=== PATIENT | female | born 1990 | race Caucasian/White ===

== ENCOUNTER 2017-12-21 15:48 | Emergency (ER) | payer OTHER, MEDICAID ==
[~2017-12-21] VITALS: Ht 160 cm; Wt 63.5 kg
[~2017-12-21 15:48] MED LIST: AUGMENTIN 875875 M1; BACTRIM DS TAB1 EACH PO; CIPROFLOXACIN500 M1 PO; COLACE100 MG PO; FLEXERIL PO; FLINTSTONES T100 MCG; HYDROCODONE-AP1 EAC6 PO; IBUPROFEN 800800 M1 PO; IRON325 PO; MACROBID 100 M100 M1 PO; MOBIC7.5 MG PO; NORCO 5-325 TA1 EACH; NORCO 5-325 TA1 EACH PO; ONDANSETRON HCL4 M2 PO; PHENAZOPYRIDIN200 M2 PO; PROTONIX 20 MG20 M1 PO; TRAMADOL 50 MG50 MG PO; TRINATE TABLET1 TAB PO; ZOFRAN ODT4 MG PO
[2017-12-21] MEDS ORDERED: PENICILLIN V P500 MG PO (16:35)
[2017-12-21] MEDS ORDERED: TRAMADOL 50 MG50 MG PO (16:35)
[2017-12-21] MEDS ORDERED: NABUMETONE 750750 M1 PO (16:35)
[2017-12-21 16:45] LABS: URINE BILIRUBIN NEGATIVE (Negative); URINE BLOOD TRACE (Negative); URINE CLARITY CLEAR; URINE COLOR YELLOW; URINE GLUCOSE-RANDOM NEGATIVE (Negative); URINE KETONES NEGATIVE (Negative); URINE LEUKOCYTES 1+ (Negative); URINE NITRITE NEGATIVE (Negative); URINE PROTEIN NEGATIVE (Negative); URINE SPECIFIC GRAVITY >= 1.030 (1.005-1.030); URINE UROBILINOGEN 0.2 E.U./dl (0.2-1.0)
[2017-12-21 16:52] LABS: AMP/METHAMP Negative (Negative); BARBITURATES Negative (Negative); BENZODIAZEPINES Negative (Negative); COCAINE Negative (Negative); METHADONE Negative (Negative); OPIATES Negative (Negative); PCP Negative (Negative); THC Negative (Negative)
[2017-12-21 16:57] LABS: CASTS None Seen /LPF (None Seen); CRYSTALS None Seen /LPF (None Seen); MUCUS 4-6 Moderate strn/LPF (None Seen); SQUAMOUS >10 Many /LPF (0-3)
[2017-12-21 16:58] LABS: URINE RBC 0-2 Rare /HPF (0-2); URINE WBC 6-15 Few /HPF (0-5)
[2017-12-21 17:02] LABS: ABSOLUTE EOSINOPHILS 0.2 thou/uL (0.0-0.7); ABSOLUTE LYMPHOCYTES 2.2 thou/uL (0.8-5.3); ABSOLUTE MONOCYTES 0.6 thou/uL (0.0-1.2); ABSOLUTE NEUTROPHILS 3.4 thou/uL (1.6-8.1); BASOPHILS 0.7 %; EOSINOPHILS 2.4 %; HEMATOCRIT 41.7 % (37.0-47.0); HEMOGLOBIN 13.8 gm/dL (12.0-15.0); LYMPHOCYTES 34.7 %; MCH 29.9 pg (26.0-34.0); MCHC 33.1 g/dL (28.0-37.0); MCV 90.5 fL (80.0-100.0); MONOCYTES 8.8 %; MPV 7.9 fl. (7.2-11.1); NUCLEATED RBCS 0 /100WBC; PLATELET COUNT* 353 thou/uL (150-400); POLYS 53.4 %; RBC 4.61 mil/uL (4.20-5.00); RDW-CV 12.8 % (10.5-14.5); WBC 6.4 thou/uL (4.0-11.0)
[2017-12-21 17:11] LABS: ANION GAP 8 mmol/L (7-16); BUN 21 mg/dL (7-18); CALCIUM 9.2 mg/dL (8.5-10.1); CHLORIDE 103 mmol/L (98-107); CO2 27 mmol/L (21-32); CREATININE 0.7 mg/dL (0.6-1.3); GLUCOSE 87 mg/dL (70-99); POTASSIUM 3.5 mmol/L (3.5-5.1); SODIUM 138 mmol/L (136-145)
[2017-12-21 17:18] LABS: ALBUMIN 4.5 g/dL (3.4-5.0); ALKALINE PHOSPHATASE 79 U/L (46-116); SGOT 11 U/L (15-37); SGPT 21 U/L (30-65); TOTAL BILIRUBIN 0.7 mg/dL (<0.1-1.0); TOTAL PROTEIN 8.6 g/dL (6.4-8.2); TROPONIN-I LEVEL <0.06 ng/mL (<0.06)
[2017-12-21 18:28] VITALS: BP 103/67
--- NOTE | 2017-12-22 09:02 | EKG ---
[place] [address] ELECTROCARDIOGRAM REPORT Name: CASEY MOISE Room: [facility]#: [id number] Admission: 12/21/17 Attend Phys: Discharge: 12/21/17 Date of : 89 Report #: [id number] THIS REPORT FOR: //name// [facility] ED Test Date: 2017-12-21 Test Time: 16:41:56 Pat Name: CASEY MOISE Department: Room: Gender: F Product Management Analyst: Geronimo HASSAN : 1990 Requested By: Danica Link Order Number: [id number] MD: Usman Messer Measurements Intervals [place] Rate: 84 P: IA: QRS: 39 QRSD: 82 T: -1 QT: 363 QTc: 430 Interpretive Statements sinus rhythm Borderline T wave abnormalities Baseline wander in lead(s) V4 No previous ECG available for comparison Electronically Signed On 12-22-2017 9:02:13 SIGNALLING AND COMMUNICATIONS ENGINEER by Usman Messer [email or web address] <ELECTRONICALLY SIGNED> By: Usman Messer MD, [facility] 12/22/17 0902 40 40 Usman eMsser MD, FACC /EPI
== END 2017-12-21 18:30 | disposition home or self-care (01) ==
LOC: M.ERS 15:48
PROVIDERS: Nurse Practitioner Family
DX: K04.7 Periapical abscess without sinus (principal); R06.00 Dyspnea, unspecified; R51 Headache; R07.89 Other chest pain; Z79.899 Other long term (current) drug therapy